=== PATIENT | male | born 1945 | race Caucasian/White ===

== ENCOUNTER 2019-06-24 13:47 | Emergency (ER) | payer MEDICARE, BC ==
[~2019-06-24] VITALS: Ht 170.2 cm; Wt 74.3 kg
[~2019-06-24 13:47] MED LIST: ALBU2.5V12 NEB; ASPI-611 PO; FLUT1DIS INH; IBUP100O19 PO; LISI-600 PO; SIMV-42 PO
[2019-06-24 14:20] LABS: BASOPHILS % (AUTO) 0.7 % (0-1); EOSINOPHILS # (AUTO) 0.2 X10'3 (0-0.9); EOSINOPHILS % (AUTO) 2.8 % (0-6); HEMATOCRIT 37.8 % (42.0-52.0); HEMOGLOBIN 12.9 g/dl (14.0-17.9); LYMPHOCYTES # (AUTO) 1.1 X10'3 (1.1-4.8); LYMPHOCYTES % (AUTO) 15.5 % (21-51); MEAN CORPUSCULAR HEMOGLOBIN 33.7 PG (27.0-31.0); MEAN CORPUSCULAR HGB CONC 34.2 g/dL (33.0-36.5); MEAN CORPUSCULAR VOLUME 98.5 FL (78-98); MEAN PLATELET VOLUME 7.7 FL (7.4-10.4); MONOCYTES # (AUTO) 0.9 X10'3 (0-0.9); MONOCYTES % (AUTO) 12.4 % (2-12); NEUTROPHILS # (AUTO) 4.7 X10'3 (1.8-7.7); NEUTROPHILS % (AUTO) 68.6 % (42-75); PLATELET COUNT 332 X10'3 (140-440); RED BLOOD COUNT 3.84 X10'6 (4.70-6.10); RED CELL DISTRIBUTION WIDTH 13.5 % (11.5-14.5); WHITE BLOOD COUNT 6.9 X10'3 (4.5-11.0)
[2019-06-24 14:34] LABS: ALANINE AMINOTRANSFERASE 19 U/L (12-78); ALBUMIN 3.5 G/DL (3.4-5.0); ALKALINE PHOSPHATASE 61 IU/L (46-116); ANION GAP 8 (8-16); ASPARTATE AMINO TRANSFERASE 25 U/L (10-37); BILIRUBIN,TOTAL 0.7 MG/DL (0.1-1.0); BLOOD UREA NITROGEN 10 MG/DL (7-18); BUN/CREATININE RATIO 14.5 (5.4-32.0); CALCIUM 8.8 MG/DL (8.5-10.1); CHLORIDE 91 MMOL/L (99-107); CREATININE 0.69 MG/DL (0.60-1.10); GLUCOSE 104 MG/DL (70-104); LIPASE 133 U/L (73-393); POTASSIUM 4.4 MMOL/L (3.5-5.1); SODIUM 126 MMOL/L (135-145); TOTAL CARBON DIOXIDE 27.2 MMOL/L (24-32); eGFR > 90 ML/MIN
[2019-06-24 15:07] LABS: CLARITY,URINE SLIGHTLY CLOUDY (Clear); COLOR,URINE YELLOW (Yellow); GLUCOSE, URINE NEGATIVE (Neg); KETONES,URINE TRACE mg/dl (Neg); LEUKOCYTE ESTERASE ,URINE NEGATIVE (Neg); NITRITES, URINE NEGATIVE (Neg); OCCULT BLOOD,URINE NEGATIVE (Neg); PROTEIN,URINE NEGATIVE (Neg)
[2019-06-24 15:12] LABS: UA COLLECTION TYPE CLN CATCH MIDSTREAM
[2019-06-24 15:15] LABS: SQUAMOUS EPITHELIAL CELL,UR FEW /LPF (FEW)
[2019-06-24 15:17] LABS: COARSE GRANULAR CAST 0-3 /LPF (NEGATIVE)
[2019-06-24 15:18] LABS: FINE GRANULAR CAST 0-3 /LPF (NEGATIVE)
[2019-06-24 15:19] LABS: WBC,URINE 0-4 /HPF (0-4)
[2019-06-24 15:22] LABS: HYALINE CASTS 0-3 /LPF (NEGATIVE); MUCUS STRANDS MODERATE /LPF (Neg)
[2019-06-24 15:23] LABS: AMORPHOUS PHOSPHATES 1+; BACTERIA,URINE FEW /HPF (Neg)
[2019-06-24 15:25] LABS: RBC,URINE 0-2 /HPF (0-2)
--- NOTE | 2019-06-24 16:05 | NUR ---
Return from X-ray ambulatory.
[2019-06-24 16:48] VITALS: BP 136/77
== END 2019-06-24 17:13 | disposition home or self-care (01) ==
LOC: ER 13:48
DX: K59.00 Constipation, unspecified (principal); I10 Essential (primary) hypertension; J45.909 Unspecified asthma, uncomplicated; Z88.1 Allergy status to other antibiotic agents; Z79.82 Long term (current) use of aspirin; Z79.899 Other long term (current) drug therapy
CPT/HCPCS: 36415; 74018; 80053; 81001; 83690; 85025; 99284

== ENCOUNTER 2021-09-03 20:53 | Inpatient (IN) | payer MEDICARE, OTHER ==
[~2021-09-03] VITALS: Ht 170.2 cm; Wt 77.3 kg
[~2021-09-03 20:53] MED LIST changes: +IBUP-2801 PO; -IBUP100O19 PO; -LISI-600 PO; +LISI20TA28 PO
[2021-09-03 21:16] LABS: BASOPHILS # (AUTO) 0.1 X10'3 (0-0.2); BASOPHILS % (AUTO) 1.2 % (0-1); EOSINOPHILS # (AUTO) 0.4 X10'3 (0-0.9); EOSINOPHILS % (AUTO) 6.3 % (0-6); HEMATOCRIT 39.8 % (42.0-52.0); HEMOGLOBIN 13.7 g/dl (14.0-17.9); LYMPHOCYTES # (AUTO) 2.5 X10'3 (1.1-4.8); LYMPHOCYTES % (AUTO) 37.1 % (21-51); MEAN CORPUSCULAR HEMOGLOBIN 33.4 PG (27.0-31.0); MEAN CORPUSCULAR HGB CONC 34.4 g/dL (33.0-36.5); MEAN CORPUSCULAR VOLUME 97.3 FL (78-98); MEAN PLATELET VOLUME 8.1 FL (7.4-10.4); MONOCYTES # (AUTO) 0.8 X10'3 (0-0.9); MONOCYTES % (AUTO) 12.2 % (2-12); NEUTROPHILS % (AUTO) 43.2 % (42-75); PLATELET COUNT 299 X10'3 (140-440); RED BLOOD COUNT 4.09 X10'6 (4.70-6.10); WHITE BLOOD COUNT 6.9 X10'3 (4.5-11.0)
[2021-09-03 21:27] LABS: ALANINE AMINOTRANSFERASE 23 U/L (12-78); ALBUMIN 3.6 G/DL (3.4-5.0); ALBUMIN/GLOBULIN RATIO 1.1 (1.1-1.5); ALKALINE PHOSPHATASE 44 IU/L (46-116); ANION GAP 8 (8-16); ASPARTATE AMINO TRANSFERASE 27 U/L (10-37); BILIRUBIN,TOTAL 0.3 MG/DL (0.1-1.0); BLOOD UREA NITROGEN 10 MG/DL (7-18); BUN/CREATININE RATIO 10.1 (5.4-32.0); CALCIUM 8.7 MG/DL (8.5-10.1); CHLORIDE 96 MMOL/L (99-107); CREATININE 0.99 MG/DL (0.60-1.10); GLUCOSE 129 MG/DL (70-104); POTASSIUM 3.9 MMOL/L (3.5-5.1); SODIUM 130 MMOL/L (135-145); TOTAL CARBON DIOXIDE 25.6 MMOL/L (24-32); eGFR 73 ML/MIN
[2021-09-03 22:44] LABS: CLARITY,URINE CLEAR (Clear); COLOR,URINE YELLOW (Yellow); GLUCOSE, URINE NEGATIVE (Neg); KETONES,URINE TRACE mg/dl (Neg); LEUKOCYTE ESTERASE ,URINE NEGATIVE (Neg); NITRITES, URINE NEGATIVE (Neg); OCCULT BLOOD,URINE NEGATIVE (Neg); PH,URINE 6.5 (4.8-8.0); PROTEIN,URINE NEGATIVE (Neg)
[2021-09-03 22:49] LABS: UA COLLECTION TYPE URINAL
[2021-09-04] MEDS ORDERED: bisacodyl 10mg suppository rectal RC PRN (03:45)
[2021-09-04] MEDS ORDERED: diphenhydrAMINE 25mg capsule PO PRN (03:45)
[2021-09-04] MEDS ORDERED: morphine 2 MG/ML inj. syringe IV PRN (03:45)
[2021-09-04] MEDS ORDERED: mag hydrox/Alum hydrox/simeth 30ml oral suspension PO PRN (03:45)
[2021-09-04] MEDS ORDERED: diphenhydrAMINE 50 mg/ml inj IV PRN (03:45)
[2021-09-04] MEDS ORDERED: magnesium hydroxide 30ml (MOM) UD suspension PO PRN (03:45)
[2021-09-04] MEDS ORDERED: ondansetron 4mg rapidly disintigrating tab PO PRN (03:45)
[2021-09-04] MEDS ORDERED: HYDROcodone/acetaminophen 5mg/325mg tablet PO PRN (03:45)
[2021-09-04] MEDS ORDERED: acetaminophen 650mg rectal suppository RC PRN (03:45)
[2021-09-04] MEDS ORDERED: ondansetron/PF 4mg/2ml inj IV PRN (03:45)
[2021-09-04] MEDS ORDERED: acetaminophen 325mg tablet PO PRN ×2 (03:45)
[2021-09-04 04:14] LABS: HEMOGLOBIN A1C 5.5 % (4.5-6.2)
[2021-09-04] MEDS: normal saline 1000ml 1,000 ML IV SCH ×3 (04:15→23:45)
[2021-09-04 04:25] LABS: CREATINE KINASE 168 U/L (39-308); MAGNESIUM 2.2 MG/DL (1.5-2.4); PHOSPHORUS 2.9 MG/DL (2.3-4.5)
[2021-09-04 04:40] VITALS: BP 155/72
[2021-09-04 05:27] LABS: D-DIMER 0.97 MG/L FEU (0-0.50)
[2021-09-04 05:31] LABS: APTT 26 SECONDS (22-32)
[2021-09-04 06:00] VITALS: BP 145/77
--- NOTE | 2021-09-04 06:00 | NUR ---
Patient in room PCU 3024. I have received report from and had the opportunity to ask questions and assume patient care.
[2021-09-04] MEDS ORDERED: docusate sod 100mg capsule PO SCH (08:00)
[2021-09-04] MEDS: metoprolol succinate 25mg (24-HOUR) SR. Tablet PO SCH (08:30)
[2021-09-04] MEDS: heparin, porcine 5000 units/ml vial SQ SCH ×2 (08:30→21:10)
[2021-09-04] MEDS: pantoprazole 40mg Tablet.DR PO SCH (08:31)
[2021-09-04 11:00] VITALS: BP 150/92
[2021-09-04] MEDS ORDERED: OMEP40CA21 PO (12:29)
[2021-09-04 15:00] VITALS: BP 139/76
[2021-09-04 18:00] VITALS: BP 145/72
[2021-09-04] MEDS ORDERED: temazepam 15mg capsule PO PRN (21:00)
[2021-09-04] MEDS ORDERED: lisinopril 20mg tablet PO SCH (21:00)
[2021-09-04] MEDS ORDERED: non-formulary drug (Simvastatin* (Zocor*) 1 TAB) PO SCH (21:00)
[2021-09-04 22:00] VITALS: BP 132/77
[2021-09-05 02:00] VITALS: BP 112/84
--- NOTE | 2021-09-05 06:30 | NUR ---
Patient in room PCU 3024. I have received report from Rossana HAYDEN and had the opportunity to ask questions and assume patient care. Patient is resting comfortably in bed this morning at shift change. White board updated, all needs met at this time.
[2021-09-05 07:52] LABS: BASOPHILS # (AUTO) 0.1 X10'3 (0-0.2); EOSINOPHILS # (AUTO) 0.3 X10'3 (0-0.9); EOSINOPHILS % (AUTO) 5.4 % (0-6); HEMATOCRIT 36.7 % (42.0-52.0); HEMOGLOBIN 12.7 g/dl (14.0-17.9); LYMPHOCYTES # (AUTO) 1.2 X10'3 (1.1-4.8); LYMPHOCYTES % (AUTO) 23.8 % (21-51); MEAN CORPUSCULAR HEMOGLOBIN 33.3 PG (27.0-31.0); MEAN CORPUSCULAR HGB CONC 34.5 g/dL (33.0-36.5); MEAN CORPUSCULAR VOLUME 96.3 FL (78-98); MEAN PLATELET VOLUME 9.2 FL (7.4-10.4); MONOCYTES # (AUTO) 0.5 X10'3 (0-0.9); MONOCYTES % (AUTO) 10.2 % (2-12); NEUTROPHILS % (AUTO) 59.6 % (42-75); PLATELET COUNT 280 X10'3 (140-440); RED BLOOD COUNT 3.81 X10'6 (4.70-6.10); RED CELL DISTRIBUTION WIDTH 14.7 % (11.5-14.5); WHITE BLOOD COUNT 5.1 X10'3 (4.5-11.0)
[2021-09-05] MEDS ORDERED: atorvastatin 10mg tablet PO SCH (08:00)
[2021-09-05] MEDS: pantoprazole 40mg Tablet.DR PO SCH (08:59)
[2021-09-05] MEDS: heparin, porcine 5000 units/ml vial SQ SCH (09:00)
[2021-09-05] MEDS: metoprolol succinate 25mg (24-HOUR) SR. Tablet PO SCH (09:00)
[2021-09-05 09:27] LABS: ALANINE AMINOTRANSFERASE 21 U/L (12-78); ALBUMIN 2.9 G/DL (3.4-5.0); ALBUMIN/GLOBULIN RATIO 1.1 (1.1-1.5); ALKALINE PHOSPHATASE 40 IU/L (46-116); ANION GAP 9 (8-16); ASPARTATE AMINO TRANSFERASE 27 U/L (10-37); BILIRUBIN,TOTAL 0.5 MG/DL (0.1-1.0); BLOOD UREA NITROGEN 10 MG/DL (7-18); BUN/CREATININE RATIO 15.2 (5.4-32.0); CHLORIDE 102 MMOL/L (99-107); CHOL/HDL RATIO 1.8 (0.00-4.99); CHOLESTEROL 171 MG/DL (0-200); CREATININE 0.66 MG/DL (0.60-1.10); GLUCOSE 93 MG/DL (70-104); HDL CHOLESTEROL 96 MG/DL (35-60); LDL CHOLESTEROL 61 MG/DL (50-100); POTASSIUM 4.4 MMOL/L (3.5-5.1); SODIUM 136 MMOL/L (135-145); TOTAL CARBON DIOXIDE 25.1 MMOL/L (24-32); TOTAL PROTEIN 5.5 G/DL (6.4-8.2); TRIGLYCERIDES 50 MG/DL (20-135); eGFR > 90 ML/MIN
[2021-09-05] MEDS: normal saline 1000ml 1,000 ML IV SCH (09:45)
[2021-09-05] MEDS ORDERED: OMEP40CA21 PO (10:01)
--- NOTE | 2021-09-05 12:30 | NUR ---
Patient is stable for discharge per MD. PIV removed with canula intact and telemetry monitoring was discontinued. Patient was educated on diagnosis and able to ask questions about changes to medications. All questions have been answered at this time. Belongings have been gathered and patient was wheeled downstairs by nurse to discharge home with .
[2021-09-05] MEDS ORDERED: LEVO125T8 PO (19:22)
== END 2021-09-05 12:47 | disposition home or self-care (01) | DRG 314 ==
LOC: ER 20:54 → ED HOLD 09-04 02:55 → PCU 3S 09-04 04:40
PROVIDERS: ADMIT Family Medicine; ATTEND Internal Medicine
DX: T82.118A Breakdown (mechanical) of other cardiac electronic device, initial encounter (principal); I50.33 Acute on chronic diastolic (congestive) heart failure; E87.1 Hypo-osmolality and hyponatremia; J84.9 Interstitial pulmonary disease, unspecified; M48.56XA Collapsed vertebra, not elsewhere classified, lumbar region, initial encounter for fracture; K44.9 Diaphragmatic hernia without obstruction or gangrene; R10.13 Epigastric pain; I11.0 Hypertensive heart disease with heart failure; E03.9 Hypothyroidism, unspecified; R55 Syncope and collapse; R82.4 Acetonuria; E78.5 Hyperlipidemia, unspecified; E86.1 Hypovolemia; J44.9 Chronic obstructive pulmonary disease, unspecified; Z91.013 Allergy to seafood; K57.30 Diverticulosis of large intestine without perforation or abscess without bleeding; Z95.0 Presence of cardiac pacemaker; Z87.891 Personal history of nicotine dependence; Z88.1 Allergy status to other antibiotic agents; Z91.012 Allergy to eggs; Z91.010 Allergy to peanuts; Z79.899 Other long term (current) drug therapy; Z79.82 Long term (current) use of aspirin
CPT/HCPCS: 36415; 71045; 74176; 80053; 80061; 81003; 82550; 83036; 83690; 83735; 83880; 84100; 84439; 84443; 84480; 84484; 85025; 85379; 85610; 85730; 87081; 93005; 93306; 99285; G0378; J1644; J7030

== ENCOUNTER 2022-04-24 19:00 | Inpatient (IN) | payer MEDICARE, OTHER ==
[~2022-04-24] VITALS: Ht 172.7 cm; Wt 79.2 kg
[~2022-04-24 19:00] MED LIST changes: -ALBU2.5V12 NEB; -ASPI-611 PO; -FLUT1DIS INH; -IBUP-2801 PO; +LEVO125T8 PO; +OMEP40CA21 PO
[2022-04-24] MEDS ORDERED: aspirin 81mg tab.chew PO ONE (20:20)
[2022-04-24 20:31] LABS: BASOPHILS % (AUTO) 0.6 % (0-1); EOSINOPHILS # (AUTO) 0.3 X10'3 (0-0.9); EOSINOPHILS % (AUTO) 3.9 % (0-6); HEMATOCRIT 33.8 % (42.0-52.0); HEMOGLOBIN 11.3 g/dl (14.0-17.9); LYMPHOCYTES # (AUTO) 1.5 X10'3 (1.1-4.8); LYMPHOCYTES % (AUTO) 17.9 % (21-51); MEAN CORPUSCULAR HEMOGLOBIN 32.6 PG (27.0-31.0); MEAN CORPUSCULAR HGB CONC 33.5 g/dL (33.0-36.5); MEAN CORPUSCULAR VOLUME 97.2 FL (78-98); MONOCYTES # (AUTO) 0.7 X10'3 (0-0.9); MONOCYTES % (AUTO) 8.1 % (2-12); NEUTROPHILS # (AUTO) 5.9 X10'3 (1.8-7.7); NEUTROPHILS % (AUTO) 69.5 % (42-75); PLATELET COUNT 304 X10'3 (140-440); RED BLOOD COUNT 3.48 X10'6 (4.70-6.10); RED CELL DISTRIBUTION WIDTH 14.8 % (11.5-14.5); WHITE BLOOD COUNT 8.4 X10'3 (4.5-11.0)
[2022-04-24 20:47] LABS: ALANINE AMINOTRANSFERASE 23 U/L (12-78); ALBUMIN 3.5 G/DL (3.4-5.0); ALBUMIN/GLOBULIN RATIO 0.9 (1.1-1.5); ALKALINE PHOSPHATASE 63 IU/L (46-116); ANION GAP 18 (8-16); ASPARTATE AMINO TRANSFERASE 28 U/L (10-37); BILIRUBIN,TOTAL 0.4 MG/DL (0.1-1.0); BLOOD UREA NITROGEN 25 MG/DL (7-18); BUN/CREATININE RATIO 20.7 (5.4-32.0); CALCIUM 8.3 MG/DL (8.5-10.1); CHLORIDE 102 MMOL/L (99-107); CREATININE 1.21 MG/DL (0.60-1.10); GLUCOSE 156 MG/DL (70-104); MAGNESIUM 1.9 MG/DL (1.5-2.4); SODIUM 132 MMOL/L (135-145); TOTAL PROTEIN 7.4 G/DL (6.4-8.2); eGFR 58 ML/MIN
[2022-04-24 20:53] LABS: TOTAL CARBON DIOXIDE 12.3 MMOL/L (24-32)
[2022-04-24] MEDS ORDERED: POTASSIUM BICARB 20meq eff tab 20 MEQ TABLET.EFF PO SCH (21:00)
[2022-04-24 22:11] LABS: ABG BASE EXCESS -11.6 mmol/L (-2.0-2.0); ABG HCO3 13.3 mmol/L (22.0-26.0); ABG OXYGEN SATURATION 97.5 % (94-97); ABG PCO2 (T) 26.7 mmHg (35.0-48.0); ABG PO2 (T) 103.3 mmHg (75.0-100.0); ALLEN'S TEST POSITIVE; FMetHb 0.2 % (0.0-1.5); FO2Hb 97.3 % (94-97); PATIENT TEMPERATURE 36.4; TOTAL HEMOGLOBIN 12.1 G/dl (14.0-18.0)
[2022-04-24] MEDS ORDERED: BISM262T46 PO (22:37)
[2022-04-24] MEDS ORDERED: ringers solution, lactated 500ml IV solution IV ONE (22:50)
[2022-04-24] MEDS ORDERED: normal saline 1000ml 1,000 ML IV ONE (23:00)
[2022-04-25] MEDS ORDERED: magnesium Cl slow-release 64mg tablet PO PRN (00:30)
[2022-04-25] MEDS ORDERED: magnesium 2GM in 50ml NS 50 ML IV PRN (00:30)
[2022-04-25] MEDS ORDERED: magnesium 4gm in 100ml NS 100 ML IV PRN (00:30)
[2022-04-25] MEDS ORDERED: magnesium hydroxide 30ml (MOM) UD suspension PO PRN (00:30)
[2022-04-25] MEDS ORDERED: mag hydrox/Alum hydrox/simeth 30ml oral suspension PO PRN (00:30)
[2022-04-25] MEDS ORDERED: acetaminophen 325mg tablet PO PRN (00:30)
[2022-04-25] MEDS ORDERED: ondansetron/PF 4mg/2ml inj IV PRN (00:30)
[2022-04-25] MEDS ORDERED: potassium CL 10mEq/100ml bag 100 ML IV PRN (00:30)
[2022-04-25] MEDS ORDERED: POTASSIUM BICARB 20meq eff tab 20 MEQ TABLET.EFF PO PRN ×2 (00:30)
[2022-04-25] MEDS ORDERED: PERFLUTREN PROTEIN-A MICROSPHR (Optison) 0.22 MG/ML 3ML VIAL IV ONE (00:30)
[2022-04-25] MEDS: normal saline 1000ml 1,000 ML IV SCH ×3 (00:58→08:22)
[2022-04-25 01:13] LABS: MAGNESIUM 1.8 MG/DL (1.5-2.4)
[2022-04-25 02:40] LABS: CLARITY,URINE CLEAR (Clear); COLOR,URINE YELLOW (Yellow); GLUCOSE, URINE NEGATIVE (Neg); KETONES,URINE TRACE mg/dl (Neg); LEUKOCYTE ESTERASE ,URINE NEGATIVE (Neg); NITRITES, URINE NEGATIVE (Neg); OCCULT BLOOD,URINE TRACE-INTACT (Neg); PH,URINE 6.5 (4.8-8.0); PROTEIN,URINE TRACE mg/dl (Neg); UROBILINOGEN,URINE 0.2 E.U/dL (0.2-1.0)
[2022-04-25 02:47] LABS: UA COLLECTION TYPE NON-SPECIFIED
[2022-04-25 02:48] LABS: SQUAMOUS EPITHELIAL CELL,UR FEW /LPF (FEW)
[2022-04-25 02:49] LABS: BACTERIA,URINE NONE SEEN /HPF (Neg); RBC,URINE 0-2 /HPF (0-2); WBC,URINE 0-4 /HPF (0-4)
[2022-04-25 04:00] VITALS: BP 108/63
[2022-04-25] MEDS ORDERED: OMEP40CA21 PO (04:04)
[2022-04-25] MEDS ORDERED: BISM262T46 PO (04:05)
[2022-04-25 06:00] VITALS: BP 135/66
[2022-04-25] MEDS ORDERED: K and/or MAG REPLACEMENT MC SCH (08:00)
[2022-04-25] MEDS: bismuth subsalicylate 262mg chew tablet PO SCH ×2 (08:00→12:00)
[2022-04-25] MEDS ORDERED: heparin, porcine 5000 units/ml vial SQ SCH (08:00)
[2022-04-25] MEDS ORDERED: pantoprazole 40mg Tablet.DR PO SCH (08:00)
[2022-04-25] MEDS ORDERED: docusate sod 100mg capsule PO SCH (08:00)
[2022-04-25 09:21] LABS: ALBUMIN 3.1 G/DL (3.4-5.0)
[2022-04-25 09:28] LABS: ANION GAP 13 (8-16); BLOOD UREA NITROGEN 23 MG/DL (7-18); CALCIUM 7.7 MG/DL (8.5-10.1); CHLORIDE 104 MMOL/L (99-107); CREATININE 1.15 MG/DL (0.60-1.10); GLUCOSE 126 MG/DL (70-104); POTASSIUM 3.9 MMOL/L (3.5-5.1); SODIUM 132 MMOL/L (135-145); TOTAL CARBON DIOXIDE 15.1 MMOL/L (24-32); eGFR 61 ML/MIN
[2022-04-25 12:21] VITALS: BP 109/65
[2022-04-25] MEDS ORDERED: atorvastatin 10mg tablet PO SCH (21:00)
[2022-04-25] MEDS ORDERED: lisinopril 20mg tablet PO SCH (21:00)
== END 2022-04-25 15:51 | disposition home or self-care (01) | DRG 641 ==
LOC: ER 19:01 → ED HOLD 04-25 00:32 → PCU 3S 04-25 03:56
PROVIDERS: ADMIT Internal Medicine; ATTEND Family Medicine
DX: E86.0 Dehydration (principal); E87.2 Acidosis; M48.00 Spinal stenosis, site unspecified; E87.6 Hypokalemia; I10 Essential (primary) hypertension; J45.909 Unspecified asthma, uncomplicated; M21.372 Foot drop, left foot; Z95.0 Presence of cardiac pacemaker; Z88.8 Allergy status to other drugs, medicaments and biological substances; Z91.012 Allergy to eggs; Z91.010 Allergy to peanuts; Z91.013 Allergy to seafood; Z79.899 Other long term (current) drug therapy
CPT/HCPCS: 36415; 36600; 71045; 80048; 80053; 81001; 82803; 83605; 83735; 83880; 84145; 84484; 85018; 85025; 87040; 87081; 93005; 93306; 99285; G0378; J7030

== ENCOUNTER 2022-06-03 23:31 | Emergency (ER) | payer MEDICARE, OTHER ==
[~2022-06-03] VITALS: Ht 167.6 cm; Wt 73.2 kg
[~2022-06-03 23:31] MED LIST changes: -LEVO125T8 PO
[2022-06-04 00:10] VITALS: BP 157/78
[2022-06-08] MEDS ORDERED: OMEP20CA15 PO (10:57)
[2022-06-11] MEDS ORDERED: ASPI-1071 PO (14:31)
[2022-06-11] MEDS ORDERED: CLOP75TA15 PO (14:32)
[2022-06-11] MEDS ORDERED: PANT-47 PO (17:28)
== END 2022-06-04 03:12 | disposition left against medical advice (07) ==
LOC: ER 23:31
DX: R53.1 Weakness (principal); Z53.21 Procedure and treatment not carried out due to patient leaving prior to being seen by health care provider
CPT/HCPCS: 93005

== ENCOUNTER 2022-08-06 13:33 | Emergency (ER) | payer MEDICARE, OTHER ==
[~2022-08-06] VITALS: Ht 172.7 cm; Wt 75.0 kg
[~2022-08-06 13:33] MED LIST changes: +ASPI-1071 PO; +CLOP75TA15 PO; +OMEP20CA15 PO; -OMEP40CA21 PO; +PANT-47 PO
[2022-08-06 13:54] LABS: BASOPHILS # (AUTO) 0.1 X10'3 (0-0.2); BASOPHILS % (AUTO) 1.1 % (0-1); EOSINOPHILS # (AUTO) 0.2 X10'3 (0-0.9); EOSINOPHILS % (AUTO) 2.9 % (0-6); HEMATOCRIT 40.6 % (42.0-52.0); HEMOGLOBIN 13.8 g/dl (14.0-17.9); LYMPHOCYTES # (AUTO) 2.2 X10'3 (1.1-4.8); LYMPHOCYTES % (AUTO) 27.9 % (21-51); MEAN CORPUSCULAR HEMOGLOBIN 33.5 PG (27.0-31.0); MEAN CORPUSCULAR VOLUME 98.3 FL (78-98); MEAN PLATELET VOLUME 8.3 FL (7.4-10.4); MONOCYTES # (AUTO) 0.7 X10'3 (0-0.9); MONOCYTES % (AUTO) 8.9 % (2-12); NEUTROPHILS # (AUTO) 4.6 X10'3 (1.8-7.7); NEUTROPHILS % (AUTO) 59.2 % (42-75); PLATELET COUNT 327 X10'3 (140-440); RED BLOOD COUNT 4.13 X10'6 (4.70-6.10); RED CELL DISTRIBUTION WIDTH 14.7 % (11.5-14.5); WHITE BLOOD COUNT 7.7 X10'3 (4.5-11.0)
[2022-08-06 14:20] LABS: ALANINE AMINOTRANSFERASE 21 U/L (12-78); ALBUMIN 3.9 G/DL (3.4-5.0); ALBUMIN/GLOBULIN RATIO 1.1 (1.1-1.5); ALKALINE PHOSPHATASE 54 IU/L (46-116); ANION GAP 14 (8-16); ASPARTATE AMINO TRANSFERASE 28 U/L (10-37); BILIRUBIN,TOTAL 0.5 MG/DL (0.1-1.0); BLOOD UREA NITROGEN 15 MG/DL (7-18); BUN/CREATININE RATIO 11.9 (5.4-32.0); CHLORIDE 97 MMOL/L (99-107); CREATININE 1.26 MG/DL (0.60-1.10); GLUCOSE 117 MG/DL (70-104); MAGNESIUM 1.9 MG/DL (1.5-2.4); POTASSIUM 3.5 MMOL/L (3.5-5.1); SODIUM 132 MMOL/L (135-145); TOTAL CARBON DIOXIDE 21.2 MMOL/L (24-32); TOTAL PROTEIN 7.6 G/DL (6.4-8.2); eGFR 55 ML/MIN
[2022-08-06 17:25] VITALS: BP 131/77
== END 2022-08-06 17:30 | disposition home or self-care (01) ==
LOC: ER 13:33
DX: R06.02 Shortness of breath (principal); R07.89 Other chest pain; R42 Dizziness and giddiness; I10 Essential (primary) hypertension; J45.909 Unspecified asthma, uncomplicated; K21.9 Gastro-esophageal reflux disease without esophagitis; Z86.73 Personal history of transient ischemic attack (TIA), and cerebral infarction without residual deficits; Z95.0 Presence of cardiac pacemaker; Z91.012 Allergy to eggs; Z91.010 Allergy to peanuts; Z91.013 Allergy to seafood; Z79.82 Long term (current) use of aspirin; Z79.899 Other long term (current) drug therapy
CPT/HCPCS: 36415; 71045; 80053; 83735; 83880; 84484; 85025; 93005; 99285

== ENCOUNTER 2025-03-08 10:14 | Emergency (ER) | payer MEDICARE, OTHER ==
[~2025-03-08] VITALS: Ht 175.3 cm; Wt 75.9 kg
[2025-03-08 10:19] VITALS: TEMP 97.4
[2025-03-08 11:00] LABS: MEAN PLATELET VOLUME 7.6 FL (7.4-10.4); RED CELL DISTRIBUTION WIDTH 13.7 % (11.5-14.5)
[2025-03-08 11:25] LABS: EOSINOPHILS % (MANUAL) 1.0 % (0-6); LYMPHOCYTES % (MANUAL) 18.0 % (21-51); MONOCYTES % (MANUAL) 21.0 % (2-12); NEUTROPHILS % (MANUAL) 60.0 % (42-75)
[2025-03-08 11:26] LABS: PLATELET ESTIMATE NORMAL
[2025-03-08 11:31] LABS: CREATININE 1.16 MG/DL (0.60-1.10); TOTAL CARBON DIOXIDE 22.4 MMOL/L (24-32); eCRCL 49 ML/MIN; eGFR 60 ML/MIN
--- NOTE | 2025-03-08 14:57 | Physician Documentation ---
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 States that his laboratory values from his primary care indicated that he had a 122 level of sodium. Patient states that he did feel under the weather surrounding the time when he has had his last lab draw. He does not indicate that he has a any other medical complaints or signs and symptoms of hyponatremia. He comes with his who was a business information consultant Reconciliation Allergies: Coded Allergies: Fish Containing Products (Unverified Allergy, Unknown, 03/08/25) egg (Unverified Allergy, Unknown, 03/08/25) neomycin (Unverified Allergy, Unknown, 03/08/25) peanut (Unverified Allergy, Unknown, 03/08/25) Uncoded Allergies: "SOME CILLINS" (Allergy, Unknown, 04/24/22) Scheduled Aspirin (Ecotrin*), 1 TAB PO DAILY Clopidogrel Bisulfate (Plavix), 75 MG PO DAILY Lisinopril (Lisinopril), 1 TAB PO HS, (Reported) Omeprazole (Omeprazole), 1 CAP PO DAILY, (Reported) Pantoprazole Sodium (PROTONIX tablet), 1 TAB PO DAILY Simvastatin* (Zocor*), 1 TAB PO HS, (Reported) Past Medical History Past Medical History: CVA/TIA/Stroke, Arrhythmia, Hypertension, Asthma, GERD, *MUSCULOSKELETAL* Past Surgical History: pacemaker Patient History: FHx: cancer of ovary GRANDFATHER OR GRANDMOTHER FHx: heart disease FATHER MOTHER Drug Use: none Lives with: Spouse Lives In: Home Review of Systems All Other Systems at this time: Reviewed and Negative ROS As stated above in the HPI, otherwise all systems are reviewed and negative. Physical Exam Physical Exam Vital Signs: Temperature: 97.4, Source: Temporal, Heart Rate: 100, Respiratory Rate: 16, BP: 134/64, Pulse Oximetry: 99, Weight: 75.910 Oxygen Flow Rate: 0 Physical Exam General: Alert, no apparent distress. . Respiratory: Lungs clear, no respiratory distress. Cardiovascular: Regular rate and rhythm, no murmurs. Gastrointestinal: Soft, nontender, nondistended. Bowels sounds present. Neurologic: Oriented x4. Psychiatric: Normal mood and affect. Skin: Normal color, warm and dry. No edema, no ecchymosis. 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[employer] Electrocardiogram (03/08/25 ) Vital Signs 03/08/25 10:19 Temp 97.4 Pulse 100 Resp 16 B/P (MAP) 134/64 Pulse Ox 99 O2 Flow Rate 0 Laboratory Tests Test 03/08/25 10:47 White Blood Count 4.6 Red Blood Count 4.32 L Hemoglobin 14.1 Hematocrit 41.9 L Mean Corpuscular Volume 97.1 Mean Corpuscular Hemoglobin 32.6 H Mean Corpuscular Hemoglobin Concent 33.6 Red Cell Distribution Width 13.7 Platelet Count 380 Mean Platelet Volume 7.6 Neutrophils (%) (Auto) 61.1 Lymphocytes (%) (Auto) 13.1 L Monocytes (%) (Auto) 22.6 H Eosinophils (%) (Auto) 2.7 Basophils (%) (Auto) 0.5 Neutrophils # (Auto) 2.8 Lymphocytes # (Auto) 0.6 L Monocytes # (Auto) 1.0 H Eosinophils # (Auto) 0.1 Basophils # (Auto) 0.0 CBC Comment Differential Total Cells Counted 100 Neutrophils % (Manual) 60.0 Lymphocytes % (Manual) 18.0 L Monocytes % (Manual) 21.0 H Eosinophils % (Manual) 1.0 Platelet Estimate Normal Red Blood Cell Morphology Normal Basophilic Stippling Sodium Level 129 L Potassium Level 3.3 L Chloride Level 97 L Carbon Dioxide Level 22.4 L Anion Gap 10 Blood Urea Nitrogen 18 Creatinine 1.16 H Estimated GFR/1.73 m2 60 BUN/Creatinine Ratio 15.5 Glucose Level 113 H Calcium Level 8.6 Total Bilirubin 0.7 Aspartate Amino Transf (AST/SGOT) 27 Alanine Aminotransferase (ALT/SGPT) 29 Alkaline Phosphatase 86 Total Protein 6.7 Albumin 3.2 L Globulin 3.5 Albumin/Globulin Ratio 0.9 L Chemistry Comments Medical Decision Making Findings And further evaluation and lab values today, patient's final came back with 129 sodium discussed this with the patient and the patient's and they both were reassured with these findings.. I discussed with them the normal lab values of 135-145 and how the patient is not far off from being within normal limits. Does with the patient's to slowly bring up his sodium but that he is not critically ill Did offer hospitalist admission however the patient in his declined Departure Disposition: 01 HOME / SELF CARE / HOMELESS Impression: Primary Impression: Abnormal laboratory test result Condition: Stable Discharge Instructions: Hyponatremia, [id number] Referrals: NO PRIMARY CARE PROVIDER (PCP) Signature Scribe Signature: r Attestation: Scribed for Alf Kothari Field Administrator by Alf Reynoso NP . 03/08/25 14:57 ALF KOTHARI NP Mar 08, 2025 14:57
[2025-03-08 15:26] VITALS: BP 118/88; PULSE 80; RESP 18; O2SAT 98
[2025-03-08] MEDS: HYDROcodone/acetaminophen 10/325mg tab PO ONE (15:26)
== END 2025-03-08 15:28 | disposition home or self-care (01) ==
LOC: ER 10:15
DX: R79.9 Abnormal finding of blood chemistry, unspecified (principal); K21.9 Gastro-esophageal reflux disease without esophagitis; I10 Essential (primary) hypertension; J45.909 Unspecified asthma, uncomplicated; Z86.73 Personal history of transient ischemic attack (TIA), and cerebral infarction without residual deficits; Z95.0 Presence of cardiac pacemaker; Z88.1 Allergy status to other antibiotic agents; Z91.012 Allergy to eggs; Z91.010 Allergy to peanuts; Z91.018 Allergy to other foods; Z79.82 Long term (current) use of aspirin; Z79.899 Other long term (current) drug therapy
CPT/HCPCS: 36415; 80053; 85007; 85025; 99283